=== PATIENT | male | born 1995 | race Two or more races ===

== ENCOUNTER 2019-10-20 00:31 | Emergency (ER) | payer SELFPAY ==
[~2019-10-20] VITALS: Ht 177.8 cm; Wt 72.6 kg
--- NOTE | 2019-10-20 00:35 | NUR ---
PT BIB EMS C/O R THIGH ABSCESS X2 DAYS.PT AAOX3, VSS, NO ACUTE DISTRESS NOTED AT THIS TIME. PT CONNECTED TO THE MONITOR AND POX
[2019-10-20] MEDS ORDERED: PIPERACILLIN /TAZOBACTAM 3.375 G VIAL IV ONE (00:54)
[2019-10-20 00:59] LABS: BASOPHILS % (AUTO) 0.3 % (0.0-2.0); EOSINOPHILS % (AUTO) 1.3 % (0.0-6.0); HEMATOCRIT 42 % (39-51); HEMOGLOBIN 14.3 g/dL (13.5-17.5); LYMPHOCYTES # (AUTO) 1.4 /CMM (0.8-4.8); LYMPHOCYTES % (AUTO) 11.6 % (20.0-44.0); MEAN CORPUSCULAR HGB CONC 34 g/dl (31.0-36.0); MEAN CORPUSCULAR VOLUME 89 fL (80-96); MONOCYTES # (AUTO) 0.8 /CMM (0.1-1.30); MONOCYTES % (AUTO) 6.5 % (2.0-12.0); NEUTROPHILS # (AUTO) 9.5 /CMM (1.8-8.9); NEUTROPHILS % (AUTO) 80.3 % (43.0-81.0); PLATELET COUNT (AUTO) 257 /CMM (150-450); WHITE BLOOD COUNT (AUTO) 11.8 K/uL (4.3-11.0)
[2019-10-20] MEDS ORDERED: IV NS 0.9% 500 ML BAG IV ONE (01:00)
[2019-10-20] MEDS ORDERED: PIPERACILLIN /TAZOBACTAM 3.375 G in IV D5W 50 ML IV ONE (01:00)
[2019-10-20 01:12] LABS: CALCIUM, SERUM 8.7 mg/dL (8.5-10.1); CREATININE 0.8 mg/dL (0.6-1.3); POTASSIUM 3.8 mmol/L (3.5-5.1)
[2019-10-20 01:40] VITALS: BP 121/84
--- NOTE | 2019-10-20 01:40 | NUR ---
Patient discharged to home in stable condition. Written and verbal after care instructions given. Patient verbalizes understanding of instruction.IV removed. Catheter intact and site benign. Pressure and 4x4 applied to site. No bleeding noted.
== END 2019-10-20 01:40 | disposition home or self-care (01) ==
LOC: ER 00:31
DX: L02.415 Cutaneous abscess of right lower limb (principal); F19.90 Other psychoactive substance use, unspecified, uncomplicated
CPT/HCPCS: 36415; 80048; 85025; 85730; 87040 ×2; 96365; 99284; J2543; J7040; J7060